=== PATIENT | female | born 1995 | race Caucasian/White ===

== ENCOUNTER → 2016-11-27 | Outpatient (CLI) | payer BC, OTHER ==
--- NOTE | 2016-11-27 13:49 | MAMMOGRAPHY REPORT ---
ULTRASOUND OF BOTH BREASTS: 11/27/2016 CLINICAL HISTORY: 21-year-old woman with reported pain behind both nipples, worse with palpation on p hysical exam. No palpable mass, skin changes or nipple discharge. COMPARISON: No prior exams were available for comparison. FINDINGS: Targeted ultrasound was performed in the periareolar and retroareolar aspect of each breas t. Sonographically normal fatty and fibroglandular tissue is seen without a discrete solid or cystic mass. No focal duct ectasia is identified bilaterally. IMPRESSION: ACR BI-RADS CATEGORY 1: NEGATIVE There is no sonographic evidence of malignancy, or other suspicious abnormality to explain the bilate ral retroareolar pain. Therefore, clinical follow-up is recommended. These results and recommendati ons were discussed with the patient at the time of the exam. Dionne Holloway M.D. ay/:11/27/2016 12:05:32 [employer] Worker: Telma SHINE)(Jose), [facility] letter sent: Normal 1/2 BI-RADS Code: ACR BI-RADS Category 1: Negative
== END | disposition home or self-care (01) ==
LOC: C.MAMM 11:03
PROVIDERS: ATTEND Student in an Organized Health Care Education/Training Program
DX: N64.4 Mastodynia (principal)